=== PATIENT | male | born 1960 | race Caucasian/White ===

== ENCOUNTER 2016-06-20 12:28 | Emergency (ER) | payer BC ==
[2016-06-20 12:50] VITALS: BP 132/63
--- NOTE | 2016-06-20 13:09 | UC ---
Neck Pain HPI - HPI Summary HPI Summary: fell while skiing, saw him go down "end over end". Struck back of head on icy surface. No LOC. Noted headache and neck pain right away, also a funny sensation in right shoulder/anterior chest. Didn't feel better after a half hour of sitting, head pressure seemed a bit worse. No vomiting or nausea. Was able to ski down the hill and walk unassisted. No bleeding. Has a "fuzzy" feeling in head, hard to describe. No confusion. No alcohol involved - History of Current Complaint Chief Complaint: UCHeadInjury Stated Complaint: HEAD INJURY (SKIING) Time Seen by Provider: 06/20/16 12:55 Hx Obtained From: Patient, Family/Medical Records Tech - Mechanism Of Injury: Blunt Trauma Timing: Constant Onset/Duration: Sudden Onset, Lasting Hours - 2 Severity: Moderate Location: Discrete At: - lower posterior neck; anterior right shoulder; headache Character: Dull, Aching, Stiff Aggravating Factors: Movement Alleviating Factors: Nothing Associated Signs & Symptoms: Positive: Headache - mild - Risk Factors Meningitis Risk Factors: Negative Risk Factors For Cervical Spine Injury: Posterior Midline Cervical Spine Tenderness - mild - Allergies/Home Medications Allergies/Adverse Reactions: Allergies Allergy/AdvReac Type Severity Reaction Status Date / Time No Known Allergies Allergy Verified 06/20/16 12:37 Home Medications: Home Medications Enalapril TAB* [Vasotec TAB*] 5 mg PO DAILY 06/20/16 [History Confirmed 06/20/16 ] Naproxen TAB* [Naprosyn TAB*] 250 mg PO Q8H PRN 06/20/16 [History Confirmed ] PMH/Surg Hx/FS Hx/Imm Hx Cardiovascular History Of: Reports: Hypertension - Surgical History Surgical History: Yes Surgery Procedure, Year, and Place: Left knee 1976 - Social History Alcohol Use: Occasionally Substance Use Type: None Smoking Status (MU): Never Smoked Tobacco Review Of Systems Constitutional: Positive: Negative Skin: Positive: Negative Eyes: Positive: Negative ENT: Positive: Negative Respiratory: Positive: Other - hurts to take deep breath, left shoulder Cardiovascular: Positive: Negative Gastrointestinal: Positive: Negative Genitourinary: Positive: Negative Musculoskeletal: Positive: Negative Neurological: Positive: Negative Psychological: Positive: Negative All Other Systems Reviewed And Are Negative: Yes Physical Exam Triage Information Reviewed: Yes Appearance: Well-Appearing, No Pain Distress, Well-Nourished Vital Signs: Initial Vital Signs Temp 98.7 F 06/20/16 12:39 Pulse 62 06/20/16 12:39 Resp 16 06/20/16 12:39 BP 132/63 06/20/16 12:39 Pulse Ox 97 06/20/16 12:39 Vital Signs Reviewed: Yes Eye Exam: Normal Eyes: Positive: Conjunctiva Clear, Other: - fundi flat ENT: Positive: Hearing grossly normal, Pharynx normal, TMs normal - no hemotympanum Neck: Positive: Supple, Tenderness @ - mild, C7 prominence. Good ROM. Mild muscular tenderness posteriorly Respiratory Exam: Normal Cardiovascular Exam: Normal Musculoskeletal Exam: Other - mild right shoulder anterior diffuse tenderness. Good ROM. Normal well services operator strength Neurological Exam: Normal Neurological: Positive: Alert, Muscle Tone Normal Psychological Exam: Normal Skin Exam: Normal Diagnostics - Laboratory Diagnostic Studies Completed/Ordered: CT head, neck: no acute injury. Shoulder: no fracture Neck Pain Course/Dx - Differential Dx/Diagnosis Provider Diagnoses: shoulder and neck sprain; head injury Discharge - Discharge Plan Condition: Stable Disposition: HOME Patient Education Materials: Shoulder Sprain (ED), Cervical Sprain (ED) Referrals: Dano Cunningham MD [Primary Care Provider] -
--- NOTE | 2016-06-20 13:35 | RAD ---
Indication: Skiing injury, right shoulder pain and injury. 3 views of the right shoulder demonstrates no fracture. No other bone or joint abnormality is noted. IMPRESSION: No fracture of the right shoulder is present.
--- NOTE | 2016-06-20 13:38 | RAD ---
Indication: Fall, head injury. CT of the brain was performed without IV contrast. Ventricular structures are midline. No midline shift is noted. The extraction spaces are unremarkable. There is no evidence of intracranial mass or hemorrhage. No other high or low density lesions are identified. Mastoid air cells are well aerated. Mucosal thickening is noted in the ethmoid air cells consistent with chronic sinusitis. IMPRESSION: No intracranial mass or hemorrhage is noted.
--- NOTE | 2016-06-20 13:47 | RAD ---
Indication: Fall, neck injury. CT of the cervical spine was obtained in the axial plane. Sagittal and coronal reconstructed images were obtained. The skull base demonstrates no evidence of fracture. Mastoid air cells are well aerated. The C1 ring is intact. No fracture is noted. Degenerative changes of the atlantoaxial joint is noted. The vertebral bodies appear normal in height. No evidence of compression fracture is noted. Degenerative disc disease at C5-C6, C6-C7 and C7-T1 is noted. No fracture of the spinous processes noted. Evaluation of the spinal canal is limited especially caudal to the C5 vertebra due to body habitus. IMPRESSION: No definite fractures identified although the lower cervical spine is limited in evaluation due to body habitus.
== END 2016-06-20 14:11 | disposition home or self-care (01) ==
LOC: UCCORT 12:28
DX: S43.401A Unspecified sprain of right shoulder joint, initial encounter (principal); S13.9XXA Sprain of joints and ligaments of unspecified parts of neck, initial encounter; S09.90XA Unspecified injury of head, initial encounter; W17.81XA Fall down embankment (hill), initial encounter; Y93.23 Activity, snow (alpine) (downhill) skiing, snowboarding, sledding, tobogganing and snow tubing; Y92.828 Other wilderness area as the place of occurrence of the external cause; I10 Essential (primary) hypertension
CPT/HCPCS: 70450; 72125; 99212; G0463

== ENCOUNTER 2017-11-24 09:07 | Emergency (ER) | payer BC ==
[2017-11-24 09:32] VITALS: BP 127/64
--- NOTE | 2017-11-24 10:02 | UC ---
Ear Complaint HPI - HPI Summary HPI Summary: This is a 57-year-old male with a one-day history of progressively worsening ear discomfort and decreasing hearing. He has no fever or chills. He does have mild URI symptoms. - History of Current Complaint Chief Complaint: UCEar Stated Complaint: BILATERAL EARS Time Seen by Provider: 11/24/17 09:45 Hx Obtained From: Patient Onset/Duration: Sudden Onset, Lasting Hours Severity Initially: Mild Severity Currently: Mild Pain Intensity: 2 Pain Scale Used: 0-10 Numeric Aggravating Factors: Other - chewing Associated Signs/Symptoms: Positive: Hearing Loss, Swelling @ - Allergies/Home Medications Allergies/Adverse Reactions: Allergies Allergy/AdvReac Type Severity Reaction Status Date / Time No Known Allergies Allergy Verified 11/24/17 09:27 PMH/Surg Hx/FS Hx/Imm Hx Previously Healthy: Yes - MARTIN Endocrine History: Dyslipidemia Cardiovascular History: Hypertension - Surgical History Surgical History: Yes Surgery Procedure, Year, and Place: Left knee 1976 - Family History Known Family History: Positive: Hypertension, Other - [place] - Social History Alcohol Use: Occasionally Substance Use Type: None Smoking Status (MU): Former Smoker Length of Time of Smoking/Using Tobacco: 1 PPD x 15 Years When Did the Patient Quit Smoking/Using Tobacco: 1989 Review of Systems Constitutional: Negative Skin: Negative Eyes: Negative ENT: Ear Ache, Nasal Discharge Respiratory: Negative Cardiovascular: Negative Gastrointestinal: Negative Genitourinary: Negative Motor: Negative Neurovascular: Negative Musculoskeletal: Negative Neurological: Negative Psychological: Negative Is Patient Immunocompromised?: No All Other Systems Reviewed And Are Negative: Yes Physical Exam Triage Information Reviewed: Yes Appearance: Well-Appearing, No Pain Distress, Well-Nourished Vital Signs: Initial Vital Signs Temp 98.5 F 11/24/17 09:26 Pulse 66 11/24/17 09:26 Resp 16 11/24/17 09:26 BP 127/64 11/24/17 09:26 Pulse Ox 98 11/24/17 09:26 Eyes: Positive: Conjunctiva Clear ENT: Positive: Nasal congestion, Uvula midline. Negative: Hearing grossly normal, Pharyngeal erythema, Nasal drainage, TMs normal - unable to vis due to swelling EAC, slgith tragal tenderness bilat, Tonsillar swelling, Tonsillar exudate, Trismus, Muffled voice, Hoarse voice, Sinus tenderness Neck: Positive: Supple, Nontender, No Lymphadenopathy Respiratory: Positive: Lungs clear, Normal breath sounds, No respiratory distress, No accessory muscle use Cardiovascular: Positive: RRR, No Murmur Musculoskeletal: Positive: ROM Intact, No Edema Neurological: Positive: Alert Psychological Exam: Normal Skin Exam: Normal Ear Complaint Course/Dx - Differential Dx/Diagnosis Provider Diagnoses: bilateral otitis externa Discharge - Sign-Out/Discharge Documenting (check all that apply): Discharge/Admit/Transfer - Discharge Plan Condition: Stable Disposition: HOME Prescriptions: Neomyc/Polym/HC 1% OTIC SUSP* [Cortisporin Otic Susp 1%*] 4 drop BOTH EARS QID 7 Days #1 btl Patient Education Materials: Otitis Externa (ED) Referrals: Dano Cunningham MD [Primary Care Provider] - If Needed Additional Instructions: recheck for new or worsening symptoms recheck next week if not better no q tips - Billing Disposition and Condition Condition: STABLE Disposition: Home
== END 2017-11-24 10:01 | disposition home or self-care (01) ==
LOC: UCCORT 09:07
DX: H60.93 Unspecified otitis externa, bilateral (principal); I10 Essential (primary) hypertension; Z87.891 Personal history of nicotine dependence
CPT/HCPCS: 99212; G0463

== ENCOUNTER 2017-12-30 16:33 | Emergency (ER) | payer BC ==
[2017-12-30 18:26] VITALS: BP 123/70
--- NOTE | 2017-12-30 18:35 | UC ---
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 no known asthma or copd. + wheezing but no chest pain. no sinus pain. -congestion is in nose, recently started in chest. no fevers/chills. - History of Current Complaint Chief Complaint: UCRespiratory Stated Complaint: CONGESTION Time Seen by Provider: 12/30/17 18:10 Pain Intensity: 0 - Allergies/Home Medications Allergies/Adverse Reactions: Allergies Allergy/AdvReac Type Severity Reaction Status Date / Time No Known Allergies Allergy Verified 11/24/17 09:27 Home Medications: Home Medications Naproxen Sodium [Naproxen 220 mg] 220 mg PO Q12HR 12/30/17 [History Confirmed ] PMH/Surg Hx/FS Hx/Imm Hx Previously Healthy: Yes - Surgical History Surgical History: Yes Surgery Procedure, Year, and Place: Left knee 1976 - Family History Known Family History: Positive: Hypertension, Other - [place] - Social History Alcohol Use: Occasionally Substance Use Type: None Smoking Status (MU): Former Smoker Length of Time of Smoking/Using Tobacco: 1 PPD x 15 Years When Did the Patient Quit Smoking/Using Tobacco: 1989 Review of Systems Constitutional: Negative Skin: Negative Eyes: Negative ENT: Nasal Discharge, Sinus Congestion Respiratory: Cough Cardiovascular: Negative Gastrointestinal: Negative Genitourinary: Negative Motor: Negative Neurovascular: Negative Musculoskeletal: Negative Neurological: Negative Psychological: Negative Is Patient Immunocompromised?: No All Other Systems Reviewed And Are Negative: Yes Physical Exam Triage Information Reviewed: Yes Appearance: Well-Appearing, No Pain Distress, Well-Nourished Vital Signs: Initial Vital Signs Temp 98.4 F 12/30/17 18:20 Pulse 58 12/30/17 18:20 Resp 17 12/30/17 18:20 BP 123/70 12/30/17 18:20 Pulse Ox 98 12/30/17 18:20 Vital Signs Reviewed: Yes Eye Exam: Normal ENT: Positive: Pharynx normal, Nasal congestion, Nasal drainage, TMs normal. Negative: Tonsillar swelling, Sinus tenderness Dental Exam: Normal Neck exam: Normal Neck: Positive: Supple, Nontender, No Lymphadenopathy Respiratory: Positive: Lungs clear, No respiratory distress, No accessory muscle use, Decreased breath sounds - mild, Other: - minimal cough x 1 during my time in room. Negative: Crackles, Rhonchi, Stridor, Wheezing Cardiovascular Exam: Normal Cardiovascular: Positive: RRR, No Murmur, Pulses Normal, Brisk Capillary Refill Abdomen Description: Positive: Nontender, Soft Musculoskeletal Exam: Normal Neurological Exam: Normal Psychological Exam: Normal Skin Exam: Normal UC Diagnostic Evaluation - Laboratory O2 Sat by Pulse Oximetry: 98 Respiratory Course/Dx - Course Course Of Treatment: no evidence for bacterial infection at this time. no indication for CXR. spacer given w/ alb prescrioption and explained improatnce of use. ask pharamcist for demonstration of MDI. he understood me well and is agreeable w/ plan. if sx worsen. recommend CXR - Differential Dx/Diagnosis Differential Diagnosis/HQI/PQRI: Asthma, Bronchitis, Sinusitis Provider Diagnoses: Bronchitis, URI. Discharge - Sign-Out/Discharge Documenting (check all that apply): Patient Departure - Discharge Plan Condition: Stable Disposition: HOME Prescriptions: Albuterol HFA INHALER* [Ventolin HFA Inhaler*] 2 puff INH Q4H PRN 30 Days #1 mdi PRN Reason: Cough Spacer/Holding Chamber (NF) [Easivent CHAMBER (NF)] 1 unit INH QID #1 device Patient Education Materials: Upper Respiratory Infection (ED), Acute Bronchitis (ED) Referrals: Dano Cunningham MD [Primary Care Provider] - 1 Week Additional Instructions: There is no evidence for any bacterial infection at this time. Should your symptoms worsen/change or persist, you should be re-evaluated. - Billing Disposition and Condition Condition: STABLE Disposition: Home
== END 2017-12-30 18:54 | disposition home or self-care (01) ==
LOC: UCCORT 16:33
DX: J40 Bronchitis, not specified as acute or chronic (principal); J06.9 Acute upper respiratory infection, unspecified; Z87.891 Personal history of nicotine dependence
CPT/HCPCS: 99212; G0463

== ENCOUNTER 2018-11-17 13:04 | Emergency (ER) | payer BC ==
[2018-11-17 13:31] VITALS: BP 138/79
--- NOTE | 2018-11-17 14:03 | ED ---
Abdominal Pain/Male - HPI Summary HPI Summary: 58 yr old male with the complaint of epigastric abdominal pain. Onset five days ago. He drank ETOH last weekend quite a bit. He complains of epigastric pain, nausea. The pain is moderate and goes into his back. It is associated with feeling like he has a gas bubble in his upper abdomen. He denies SOB, diaphoresis. He denies fever, chills. He denies dizziness. He also reports some discomfort radiating into his right shoulder blade. - History of Current Complaint Chief Complaint: UCGI Stated Complaint: NAUSEA X5 DAYS Time Seen by Provider: 11/17/18 13:44 Pain Intensity: 0 - Allergies/Home Medications Allergies/Adverse Reactions: Allergies Allergy/AdvReac Type Severity Reaction Status Date / Time No Known Allergies Allergy Verified 11/17/18 13:25 Home Medications: Home Medications Ibuprofen TAB* [Advil TAB*] 600 mg PO Q6H PRN 11/17/18 [History Confirmed ] PMH/Surg Hx/FS Hx/Imm Hx Cardiovascular History: Reports: Hx Hypertension - Surgical History Surgery Procedure, Year, and Place: Left knee 1976 Infectious Disease History: No Infectious Disease History: Denies: Traveled Outside the [place] in Last 30 Days - Family History Known Family History: Positive: Cardiac Disease, Hypertension, Other - [place] - Social History Occupation: Employed Full-time Lives: With Family Alcohol Use: "Couple times a week" Substance Use Type: Reports: None Smoking Status (MU): Former Smoker Length of Time of Smoking/Using Tobacco: 1 1/2 PPD x 10 Years Review of Systems Constitutional: Negative Positive: Abdominal Pain, Nausea All Other Systems Reviewed And Are Negative: Yes Physical Exam Triage Information Reviewed: Yes Vital Signs On Initial Exam: Initial Vitals Temp Pulse Resp BP Pulse Ox 98.9 F 66 18 138/79 97 11/17/18 13:23 11/17/18 13:23 11/17/18 13:23 11/17/18 13:23 11/17/18 13:23 Vital Signs Reviewed: Yes Appearance: Positive: Well-Appearing, No Pain Distress, Obese Skin: Positive: Warm, Skin Color Reflects Adequate Perfusion Head/Face: Positive: Normal Head/Face Inspection Eyes: Positive: EOMI ENT: Positive: Normal ENT inspection Respiratory/Lung Sounds: Positive: Clear to Auscultation, Breath Sounds Present Cardiovascular: Positive: RRR. Negative: Murmur Abdomen Description: Positive: Nontender. Negative: Distended Musculoskeletal: Positive: Strength/ROM Intact Neurological: Positive: Sensory/Motor Intact, Alert, Oriented to Person Place, Time, CN Intact II-III, Normal Gait, Speech Normal Psychiatric: Positive: Normal Diagnostics - Vital Signs Vital Signs Temp Pulse Resp BP Pulse Ox 11/17/18 13:23 98.9 F 66 18 138/79 97 - Laboratory Lab Statement: Any lab studies that have been ordered have been reviewed, and results considered in the medical decision making process. Abdominal Pain Male Course/Dx - Course Course Of Treatment: 58 yr old male with epigastric pain. He was advised to go to the hospital ER by ambulance for further evaluation and work up, and he was informed of his EKG changes. He and his verbalized that they do not want to go by ambulance, but that she will drive him over. - Diagnoses Provider Diagnoses: Epigastric abdominal pain, Hypertension Discharge - Sign-Out/Discharge Documenting (check all that apply): Patient Departure All imaging exams completed and their final reports reviewed: No Studies - Discharge Plan Condition: Good Disposition: AGAINST MEDICAL ADVICE Referrals: Dano Cunningham MD [Primary Care Provider] - - Billing Disposition and Condition Condition: GOOD Disposition: Against Medical Advice
== END 2018-11-17 14:14 | disposition left against medical advice (07) ==
LOC: UCCORT 13:04
DX: R10.13 Epigastric pain (principal); I10 Essential (primary) hypertension; Z87.891 Personal history of nicotine dependence
CPT/HCPCS: 93005; 99212; G0463